=== PATIENT | female | born 2000 | race Native Hawaiian/Other Pacific Islander ===

== ENCOUNTER 2022-01-25 06:55 | Emergency (ER) | payer OTHER, SELFPAY ==
[2022-01-25 07:02] VITALS: BP 134/89; PULSE 95; RESP 18; TEMP 36.6; BMI 25.7
--- NOTE | 2022-01-25 07:18 | ED_ITS ---
HPI - General Adult General Date Seen: 01/25/22 Chief complaint: Jaw Injury/Pain Stated complaint: Body aches Time Seen by Provider: 01/25/22 07:02 Source: patient Mode of arrival: ambulatory Limitations: no limitations History of Present Illness HPI narrative: Patient is a 21-year-old female comes in with complaints of tightness in her jaw that she noticed around midnight. Yesterday while driving to [place] she felt very anxious and started noticing some numbness and tingling starting in her fingertips and toes and spreading up her hands and arms. She also had numbness tingling around her mouth. She acknowledges that she was very anxious and was probably breathing fast. She has a history of anxiety has been on numerous medications, none of which helped. She is currently only taking Adderall for presumed ADD but has not seen her clinic doctor in over a year. Those symptoms all resolved but the jaw tightness has persisted. While she was presumably hyperventilating she did have a feeling in her hands that they were clenching and stiff. Her symptoms were made worse when she called her boyfriend and another friend and neither one of them was able to come pick her up from [place]. Related Data Home Medications Medication Instructions Recorded Confirmed dextroamphetamine-amphetamine 20 20 mg PO BID 01/25/22 01/25/22 mg tablet etonogestrel 68 mg subdermal SUBDERMAL 01/25/22 implant (Nexplanon) Allergies Allergy/AdvReac Type Severity Reaction Status Date / Time No Known Drug Allergies Allergy Verified 01/25/22 07:05 Review of Systems Status of ROS: Reports: 10 or more systems reviewed and unremarkable except as noted in History and below [facility] Medical History (Updated 01/25/22 @ 07:25 by Sanjay Rosen MD) ADHD Generalized anxiety disorder with panic attacks Surgical History (Updated 01/25/22 @ 07:02 by Sanjay Rosen MD) History of tonsillectomy and adenoidectomy Social History (Updated 01/25/22 @ 07:19 by Sanjay Rosen MD) Narrative: Single, nonsmoker, no kids Smoking Status: Never smoker Do you use any of these nicotine containing products: Vaping Products How often do you have a drink containing alcohol: monthly or less AUDIT-C Alcohol total score: 1 Non-prescribed substance use: denies use Exam Narrative: Exam Narrative: Vitals noted. HEENT: Conjunctiva clear. Tympanic membranes are pearly white bilaterally. Posterior pharynx is clear without erythema or exudate. Tonsils are surgically absent. Neck is supple without adenopathy, thyromegaly, carotid bruit. Lungs: Clear to auscultation in all cotto. No wheezes, rales, rhonchi. Heart: Regular rate and rhythm without murmur. Abdomen: Soft and nontender. No guarding, rigidity, rebound. Bowel sounds are normal. No palpable masses. Extremities: No cyanosis or edema. Good distal pulses. Skin: No abnormalities noted of the exposed skin. Neurologic: Awake, alert, fully oriented. Neurologic exam is nonfocal. Psychiatric: She is obviously very anxious and tearful. She denies depression. Const: Vital Signs, click to edit/add: Vital Signs - 24 hr 01/25/22 07:02 Temperature 97.8 F Pulse Rate [Right Pulse Oximeter] 95 Respiratory Rate 18 Blood Pressure [Ri ght Upper Arm] 134/89 Course Course Hospital Course: Patient is seen and examined. It seems apparent that this was hyperventilation and anxiety. The patient is looking for some reassurance that none of her ?levels ?are off and I did agree to order some labs. She is not interested in medication for anxiety at this time. Reevaluation(s) Reevaluation #1: Labs are all normal. Vital Signs Vital signs: Initial Vital Signs Temperature 97.8 F 01/25/22 07:02 Temperature Source Temporal Artery Scan 01/25/22 07:02 Pulse Rate 95 01/25/22 07:02 Respiratory Rate 18 01/25/22 07:02 Blood Pressure 134/89 01/25/22 07:02 Blood Pressure Mean 104 01/25/22 07:02 Blood Pressure Position Sitting 01/25/22 07:02 Oxygen Delivery Method 01/25/22 07:02 Vital Signs Temperature 97.8 F 01/25/22 07:02 Pulse Rate 95 01/25/22 07:02 Respiratory Rate 18 01/25/22 07:02 Blood Pressure 134/89 01/25/22 07:02 Temperature 97.8 F 01/25/22 07:02 Pulse Rate 95 01/25/22 07:02 Respiratory Rate 18 01/25/22 07:02 Blood Pressure 134/89 01/25/22 07:02 Medical Decision Making Lab Data Labs: Lab Results 01/25/22 01/25/22 Range/Units 07:25 07:25 WBC 10.01 (4.50-11.00) K/uL RBC 4.89 (4.00-5.20) m/uL Hgb 15.4 (12.0-16.0) gm/dL Hct 44.8 (33.0-51.0) % MCV 92 (80-100) fL MCH 32 (26-34) pg MCHC 34 (32-36) gm/dL RDW Coeff of Amber 12.0 (11.5-15.5) % Plt Count 252 (140-440) K/uL Neut % (Auto) 68.6 (42.0-72.0) % Lymph % (Auto) 22.5 (20-44) % [place] % (Auto) 7.0 (0.0-11.0) % Eos % (Auto) 1.4 (0.0-7.0) % Baso % (Auto) 0.4 (0.0-3.0) % Neut # (Auto) 6.87 (1.7-7.0) K/uL Lymph # (Auto) 2.25 (0.90-2.90) K/uL [place] # (Auto) 0.70 (0.00-0.90) K/UL Eos # (Auto) 0.14 (0.00-0.50) K/uL Baso # (Auto) 0.04 (0.00-0.30) K/uL Abs Immat Gran (auto) 0.01 (0.00-0.30) K/uL Sodium 137 (135-149) mmol/L Potassium 4.0 (3.6-5.1) mmol/L Chloride 105 (96-114) mmol/L Carbon Dioxide 22 (20-32) mmol/L BUN 10 (5-24) mg/dL Creatinine 0.7 (0.5-1.5) mg/dL Estimated Creat Clear 108.86 Estimated GFR 125 ml/min Glucose 92 (60-115) mg/dL Calcium 9.1 (8.4-10.6) mg/dL Discharge Plan Discharge Clinical Impression: Generalized anxiety disorder with panic attacks, Paresthesias Patient Disposition: Home, Self-Care Condition: Improved Additional Instructions: Follow-up with your PCP discuss your ADD meds and anxiety. Prescriptions: No Action dextroamphetamine-amphetamine 20 mg tablet 20 mg PO BID 0RF Nexplanon 68 mg implant subdermal 0RF Stand Alone Forms: PA Semi Info Instructions
[2022-01-25 07:43] LABS: Basophils Absolute Auto 0.04 K/uL (0.00-0.30); Basophils Percent Auto 0.4 % (0.0-3.0); Eosinophils Absolute Auto 0.14 K/uL (0.00-0.50); Eosinophils Percent Auto 1.4 % (0.0-7.0); Hematocrit 44.8 % (33.0-51.0); Hemoglobin* 15.4 gm/dL (12.0-16.0); Immature Granulocytes Abs Auto 0.01 K/uL (0.00-0.30); Lymphocytes Absolute Auto 2.25 K/uL (0.90-2.90); Lymphocytes Percent Auto 22.5 % (20-44); Mean Corpuscular HGB Conc 34 gm/dL (32-36); Mean Corpuscular Hemoglobin 32 pg (26-34); Mean Corpuscular Volume 92 fL (80-100); Neutrophils Absolute Auto 6.87 K/uL (1.7-7.0); Neutrophils Percent Auto 68.6 % (42.0-72.0); Platelet Count* 252 K/uL (140-440); Red Blood Count 4.89 m/uL (4.00-5.20); Slide Review Reflex No; White Blood Count* 10.01 K/uL (4.50-11.00)
[2022-01-25 07:54] LABS: Chloride* 105 mmol/L (96-114); Sodium* 137 mmol/L (135-149)
[2022-01-25 07:56] LABS: Creatinine* 0.7 mg/dL (0.5-1.5); Est. Creatinine Clearance* 108.86; Estimated Glomerular Filt Rate 125 ml/min
[2022-01-25 07:57] LABS: Blood Urea Nitrogen* 10 mg/dL (5-24); Calcium* 9.1 mg/dL (8.4-10.6); Carbon Dioxide* 22 mmol/L (20-32); Glucose* 92 mg/dL (60-115)
== END 2022-01-25 09:01 | disposition home or self-care (01) ==
PROVIDERS: Emergency Provider Family Medicine
DX: F41.1 Generalized anxiety disorder (principal); F41.0 Panic disorder [episodic paroxysmal anxiety]
CPT/HCPCS: 36415; 80048; 85025; 99282; 99283

== ENCOUNTER 2022-05-17 16:36 | Outpatient (CLI) | payer OTHER, SELFPAY ==
[2022-05-17 19:09] LABS: Chlamydia DNA Amplified* NOT DETECTED (No Detected); GC DNA Amplified* NOT DETECTED (No Detected)
== END 2022-05-17 16:37 | disposition home or self-care (01) ==
LOC: NFLDREF 16:36
PROVIDERS: Visit Provider Obstetrics & Gynecology
DX: Z11.3 Encounter for screening for infections with a predominantly sexual mode of transmission (principal)
CPT/HCPCS: 87491; 87591

== ENCOUNTER 2022-05-26 14:44 | Outpatient (CLI) | payer OTHER, SELFPAY ==
--- NOTE | 2022-05-26 15:00 | CRLHL7_ITS ---
For Patients: As a result of the Century Cures Act, medical imaging exams and procedure reports are released immediately into your electronic medical record. You may view this report before your referring provider. If you have questions, please contact your health care provider. INDICATION: Pelvic pain measuring 3.3 x 2.2 x 2.8 cm with several smaller daughter cysts. COMPARISON: none TECHNIQUE: 2D reid scale and color Doppler images were acquired of the pelvis using a transabdominal and transvaginal approach. FINDINGS: Sonographic images demonstrate a normal size and smooth outer contour of the uterus. Uterus measures 8.2 cm in length by 3.4 cm in AP diameter by 4.8 cm in transverse dimension. The myometrium has a normal uniform echotexture. The endometrial lining appears normal and measures 7 mm in composite thickness. The right ovary measures 4.2 x 2.8 x 3.7 cm in size and the left ovary measures 3.0 x 1.6 x 2.5 cm. The ovaries demonstrate normal arterial and venous blood flow on color Doppler analysis. There are no suspicious fluid collections within the cul-de-sac. There is a right ovarian cyst measuring 3.3 x 2.2 x 2.8 cm with several smaller daughter cysts. The urethra appears prominent with wall thickening. IMPRESSION: Right ovarian cyst measuring 3.3 cm with multiple small daughter cysts. No excess pelvic free fluid. Urethra appears prominent in the midline with suggestion of urethral wall thickening which could suggest urinary tract infection in the appropriate clinical setting. Dictated by Sanjay Mccloud MD @ 05/26/2022 4:08:36 PM (Electronically Signed)
== END 2022-05-26 14:45 | disposition home or self-care (01) ==
LOC: US 14:46
PROVIDERS: Visit Provider Obstetrics & Gynecology
DX: R10.2 Pelvic and perineal pain (principal); N83.201 Unspecified ovarian cyst, right side
CPT/HCPCS: 76830; 76856

== ENCOUNTER 2022-05-26 15:16 | Outpatient (CLI) | payer OTHER, SELFPAY | END 2022-05-26 15:17 | disposition home or self-care (01) | LOC: NFLDREF 15:17 | PROVIDERS: Visit Provider Obstetrics & Gynecology | DX: R10.2 Pelvic and perineal pain (principal); N83.201 Unspecified ovarian cyst, right side | CPT/HCPCS: 87086 ==

== ENCOUNTER 2022-06-27 21:49 | Emergency (ER) | payer OTHER, SELFPAY ==
[2022-06-27 21:55] VITALS: BP 120/61; PULSE 125; TEMP 36.7; O2SAT 95; BMI 27.5
--- NOTE | 2022-06-27 22:17 | CRLHL7_ITS ---
For Patients: As a result of the Century Cures Act, medical imaging exams and procedure reports are released immediately into your electronic medical record. You may view this report before your referring provider. If you have questions, please contact your health care provider. Indication: Fall. Technique: Three views left extremity 2nd digit finger. Comparison: None. Findings/Impression: Anterior dislocation of the 2nd middle phalanx with proximal retraction on the proximal 2nd phalanx. Mild soft tissue swelling. Joint spaces are otherwise maintained. Bony mineralization is age appropriate. Dictated by Sanjay Montiel MD @ 06/27/2022 10:59:03 PM (Electronically Signed)
--- NOTE | 2022-06-27 22:18 | ED_ITS ---
HPI - Extremity Injury (Upper) General Chief Complaint: Extremity Pain/Injury, Upper Stated Complaint: fell on left hand Time Seen by Provider: 06/27/22 21:59 Source: patient Mode of arrival: ambulatory Limitations: no limitations History of Present Illness HPI narrative: 22-year-old female presents the emergency department after a slip and fall on the ice. She fell backwards onto her butt trying to catch herself with her hand, she noted immediate pain in the left 2nd finger and deformity now. She cannot straighten the finger. No prior history of surgery or injury to this area. Did not hit her head, no loss of consciousness, no other systemic illness. Has not taken any medication for pain. Home meds are Adderall and Nexplanon. No allergies. Socially she denies any intoxication tonight. No pertinent travel Related Data Home Medications Medication Instructions Recorded Confirmed dextroamphetamine-amphetamine 20 20 mg PO BID 01/25/22 06/27/22 mg tablet etonogestrel 68 mg subdermal subdermal 01/25/22 05/17/22 implant (Nexplanon) Allergies Allergy/AdvReac Type Severity Reaction Status Date / Time No Known Drug Allergies Allergy Verified 05/17/22 14:48 Review of Systems Narrative: Denies other generalized, musculoskeletal, skin or neurological changes PFSH PFSH Medical History ADHD Generalized anxiety disorder with panic attacks Surgical History History of tonsillectomy and adenoidectomy Family History Paternal Grandmother Skin cancer Maternal Grandmother Diabetes Father Diabetes Social History Narrative: Single, nonsmoker, no kids Smoking Status: Never smoker Do you use any of these nicotine containing products: None Second hand tobacco smoke exposure: No How often do you have a drink containing alcohol: monthly or less How often do you have six or more drinks on one occasion: Never AUDIT-C Alcohol total score: 1 Non-prescribed substance use: denies use Little interest or pleasure in doing things: several days Feeling down, depressed, or hopeless: not at all service: No Exam Const: Vital Signs, click to edit/add: Vital Signs - 24 hr 06/27/22 21:55 Temperature 98.1 F Pulse Rate [Pulse Oximeter] 125 H Blood Pressure [Le ft Upper Arm] 120/61 Pulse Oximetry 95 Oxygen Delivery Me thod Room Air Documenting provider has reviewed patient's vital signs: yes Common normals: no apparent distress General appearance: cooperative and well kempt HENMT: Common normals: normocephalic Head and scalp: normocephalic Eye: Other: Normal visual tracking and gaze Resp: Common normals: normal respiratory effort and clear to auscultation bilaterally Effort & inspection: able to speak in complete sentences Auscultation: clear to auscultation bilaterally Cardio: Common normals: regular rate, regular rhythm and no murmurs Rate: r egular rate Rhythm: regular rhythm Extremity: Other: Right hand grossly normal. Left hand with obvious deformity and swelling of 2nd finger at both interphalangeal joints. Seems to be some internal rotation at the distal phalanx as well, cannot extend the finger stuck in flexion. Moves normally at the MCP joint. Wrist with no tenderness, swelling, normal range of motion. Forearm appears grossly normal. She can abduct and adduct the fingers without difficulty. Neuro: Other: Normal sensation and capillary refill in the injured finger Psych: Appearance: well kempt Attitude: engaged Insight: insight good Judgement: judgment good Skin: Common normals: no wounds Narrative: No open wounds. Course Vital Signs Vital signs: Initial Vital Signs Temperature 98.1 F 06/27/22 21:55 Temperature Source Temporal Artery Scan 06/27/22 21:55 Pulse Rate 125 H 06/27/22 21:55 Pulse Rhythm 06/27/22 21:55 Blood Pressure 120/61 06/27/22 21:55 Blood Pressure Mean 80 06/27/22 21:55 Pulse Oximetry 95 06/27/22 21:55 Oxygen Delivery Method 06/27/22 21:55 Vital Signs Temperature 98.1 F 06/27/22 21:55 Pulse Rate 125 H 06/27/22 21:55 Blood Pressure 120/61 06/27/22 21:55 Pulse Oximetry 95 06/27/22 21:55 Oxygen Delivery Method 06/27/22 21:55 Temperature 98.1 F 06/27/22 21:55 Pulse Rate 125 H 12/27/22 21:55 Blood Pressure 120/61 06/27/22 21:55 Pulse Oximetry 95 06/27/22 21:55 Oxygen Delivery Method 06/27/22 21:55 MDM - Extremity Injury (Upper) MDM Narrative Medical decision making narrative: Strong suspicion for dislocation verses fracture, tendon injury. Begin with x- ray. Ibuprofen for pain. Will likely need setting. Update 11:10 a.m.: Counseled the patient on relocation after dislocation was discussed. She did want to attempt without any anesthesia. Unfortunately she had significant pain with this and I stopped the procedure because she was tensing up and I did not feel like I could safely complete. I then performed a digital block with a total of 1 mL of 1% lidocaine injected medially and laterally on the index finger. This caused great anesthesia and I attempted to relocate the finger. Procedure: Reduction of dislocated finger: After anesthesia with digital block: Applied gentle outward traction to distal portion of index finger. With this maneuver, and no need to hyperextend, the finger spontaneously relocated with no pain or difficulty. Was able to flex and extend following procedure though co uld not extend fully. When I look at the x-rays there is a slight area on the middle phalanx that I cannot exclude a fracture and requested post reduction films. Update: 05 21: Repeat films per my interpretation no signs of fracture. Placed in a finger cot splint with immobilization at the PIP and the DIP joints, counseled to wear this for the next 6 days. Tylenol and ibuprofen as needed for pain, ice as needed. May return to work with the finger splint in place. Imaging Data Finger x-ray, initial: My impression: Dislocation at PIP Radiologist's impression: Findings/Impression: Anterior dislocation of the 2nd middle phalanx with proximal retraction on the proximal 2nd phalanx. Mild soft tissue swelling. Joint spaces are otherwise maintained. Discharge Plan Discharge Clinical Impression: Closed traumatic dislocation of joint of left index finger Patient Disposition: Home w/ Parent or Adult Condition: Improved Instructions: Finger Dislocation (ED) Additional Instructions: Your finger was dislocated by the fall, able to be put back in pretty easily. I do not see any signs of fracture. I think that the difficulty with movement is from the fluid and swelling in the joint. This has a good prognosis. Occasionally, x-rays can miss small fractures including those that cause the tendon injuries that we discussed. At this time, you only need to wear the finger splint for the next 3-5 days. This will help prevent re-injury as the ligaments that support the joint will still be pretty soft for the next few d ays. It is okay to use Tylenol and ibuprofen as needed. You can take the splint off to flex and work the finger for a minute or so but put it back on for any activity including sleeping. Bruising, mild discoloration and very mild numbness of the finger tip can be expected but should resolve within a few days. As we discussed, inability to straighten or bend the finger can be a sign of a tendon injury and would warrant a follow-up with the orthopedic doctor though not emergent. It is okay to return to work, but you must wear the finger splint and this will make typing more difficult but it can be done. Activity Level: Activity as Tolerated Discharge Diet: Regular Prescriptions: No Action dextroamphetamine-amphetamine 20 mg tablet 20 mg PO BID Nexplanon 68 mg implant subdermal Follow Up/Referrals: Provider,Not a Local [Primary Care Provider] - Stand Alone Forms: [employer] Info Instructions
[2022-06-27] MEDS: IBUPROFEN 200 MG TABLET 600 MG PO (22:30)
--- NOTE | 2022-06-27 23:06 | CRLHL7_ITS ---
For Patients: As a result of the Cures Act, medical imaging exams and procedure reports are released immediately into your electronic medical record. You may view this report before your referring provider. If you have questions, please contact your health care provider. Indication: Postreduction. Technique: Two views left index finger. Comparison: Left index finger radiographs from the same day. Findings/Impression: Interval reduction of the index finger middle phalanx into anatomic alignment with mu-ism of the proximal interphalangeal joint congruency. No fracture lucency visualized. Mild soft tissue swelling about the index finger. Dictated by Abhay Brown MD @ 06/27/2022 11:24:03 PM (Electronically Signed)
[2022-06-27 23:31] VITALS: BP 123/66; PULSE 110; RESP 16
== END 2022-06-27 23:31 | disposition home or self-care (01) ==
PROVIDERS: Emergency Provider Family Medicine
DX: S63.291A Dislocation of distal interphalangeal joint of left index finger, initial encounter (principal); W01.0XXA Fall on same level from slipping, tripping and stumbling without subsequent striking against object, initial encounter
CPT/HCPCS: 29130; 73140; 99283; 99284; A9270

== ENCOUNTER 2022-07-24 07:19 | Outpatient (CLI) | payer OTHER, SELFPAY ==
--- NOTE | 2022-07-24 07:15 | CRLHL7_ITS ---
For Patients: As a result of the Century Cures Act, medical imaging exams and procedure reports are released immediately into your electronic medical record. You may view this report before your referring provider. If you have questions, please contact your health care provider. INDICATION: History of pelvic pain. Right ovarian cyst. Follow-up. TECHNIQUE: Transvaginal pelvic ultrasound. Grayscale images were acquired. COMPARISON: May 26, 2022. FINDINGS: Normal uterus measuring 7.6 x 2.6 x 4.1 cm. Normal endometrial stripe of 4 mm measured transvaginally. No free pelvic fluid. Normal-sized ovaries with the right measuring 3.4 x 2.2 x 2.8 cm and the left ovary measuring 3.6 x 2.0 x 2.3 cm. Each ovary contain a few small follicles. No cystic or solid ovarian masses. IMPRESSION: Normal pelvic ultrasound. Dictated by Woody Velazquez MD @ 07/24/2022 8:41:02 AM (Electronically Signed)
== END 2022-07-24 07:20 | disposition home or self-care (01) ==
LOC: US 07:19
PROVIDERS: Visit Provider Obstetrics & Gynecology
DX: R10.2 Pelvic and perineal pain (principal); N83.201 Unspecified ovarian cyst, right side
CPT/HCPCS: 76830